=== PATIENT | female | born 1995 | race Caucasian/White ===

== ENCOUNTER 2023-10-18 18:57 | Emergency (ER) | payer OTHER ==
[~2023-10-18] VITALS: Ht 170.2 cm; Wt 80.0 kg
[2023-10-18] MEDS ORDERED: TIRZ5PEN3 SQ (19:10)
[2023-10-18] MEDS ORDERED: METH-1165 PO (20:49)
[2023-10-18] MEDS: methocarbamoL 750 MG TAB PO ONE (20:50)
[2023-10-18 21:00] VITALS: BP 114/71; TEMP 98.8; O2SAT 99
== END 2023-10-18 21:05 | disposition home or self-care (01) ==
LOC: M ED 18:57
DX: S16.1XXA Strain of muscle, fascia and tendon at neck level, initial encounter (principal); S29.012A Strain of muscle and tendon of back wall of thorax, initial encounter; V43.52XA Car driver injured in collision with other type car in traffic accident, initial encounter; Y92.9 Unspecified place or not applicable; Y93.9 Activity, unspecified; Y99.9 Unspecified external cause status; Z98.84 Bariatric surgery status

== ENCOUNTER 2023-12-20 15:17 | Emergency (ER) | payer OTHER ==
[~2023-12-20] VITALS: Ht 170.2 cm; Wt 77.4 kg
[~2023-12-20 15:17] MED LIST: METH-1165 PO; TIRZ5PEN3 SQ
[2023-12-20] MEDS ORDERED: MOTR200T44 PO (15:30)
[2023-12-20] MEDS ORDERED: IBUP-1022 PO (16:58)
[2023-12-20 17:03] VITALS: BP 107/69; TEMP 98.5; O2SAT 100
== END 2023-12-20 17:06 | disposition home or self-care (01) ==
LOC: M ED 15:17
DX: S90.32XA Contusion of left foot, initial encounter (principal); W22.01XA Walked into wall, initial encounter; Y92.009 Unspecified place in unspecified non-institutional (private) residence as the place of occurrence of the external cause; Y93.9 Activity, unspecified; Y99.9 Unspecified external cause status; Z98.84 Bariatric surgery status

== ENCOUNTER 2024-02-25 18:27 | Emergency (ER) | payer OTHER ==
[~2024-02-25] VITALS: Ht 170.2 cm; Wt 79.7 kg
[~2024-02-25 18:27] MED LIST changes: +IBUP-1022 PO; +MOTR200T44 PO
[2024-02-25 20:02] LABS: BASO % 0.2 % (0.0-1.0); EOS % 0.4 % (0.0-3.0); HEMATOCRIT 38.4 % (36.0-47.0); HEMOGLOBIN 12.9 g/dl (12.0-15.5); LYMPH # 0.8 10^3/uL (1.5-5.0); MEAN CORPUSCULAR HEMOGLOBIN 30.6 pg (27.0-33.0); MEAN CORPUSCULAR HGB CONC 33.6 g/dl (32.0-36.5); MEAN CORPUSCULAR VOLUME 91.2 fl (80.0-96.0); MONO # 0.3 10^3/uL (0.0-0.8); MONO % 7.4 % (2.0-8.0); NEUTROPHILS # 3.3 10^3/uL (1.5-8.5); NEUTROPHILS % 74.8 % (36.0-66.0); PLATELET COUNT, AUTOMATED 122 10^3/uL (150-450); RED BLOOD COUNT 4.21 10^6/uL (4.00-5.40); WHITE BLOOD COUNT 4.5 10^3/uL (4.0-10.0)
[2024-02-25 20:28] LABS: CK-MB VALUE MASS < 1.0 NG/ML (<3.6)
[2024-02-25 20:30] LABS: ALBUMIN 3.3 G/DL (3.2-5.2); ALKALINE PHOSPHATASE 60 U/L (46-116); ALT/SGPT 15 U/L (7.0-40); AST/SGOT 15 U/L (<34); BILIRUBIN,DIRECT 0.2 MG/DL (<0.4); BILIRUBIN,TOTAL 0.7 MG/DL (0.3-1.2); CPK CREATINE PHOSPHOKINASE 43 U/L (34-145); MB/CK RELATIVE INDEX 2.32 (< OR =4); TOTAL PROTEIN 6.3 G/DL (5.7-8.2)
[2024-02-25 20:46] LABS: HCG, SERUM QUALITATIVE NEGATIVE (NEGATIVE)
[2024-02-25 21:10] LABS: BLOOD UREA NITROGEN 11 MG/DL (9-23); CALCIUM LEVEL 8.6 MG/DL (8.5-10.1); CARBON DIOXIDE LEVEL 26 MMOL/L (20-31); CHLORIDE LEVEL 108 MMOL/L (98-107); CREATININE FOR GFR 0.64 MG/DL (0.55-1.30); GLOMERULAR FILTRATION RATE > 60.0 (>60); GLUCOSE, FASTING 146 MG/DL (60-100); POTASSIUM SERUM 3.5 MMOL/L (3.5-5.1); SODIUM LEVEL 138 MMOL/L (136-145)
[2024-02-25] MEDS: AZITHROMYCIN 250MG TABLET PO ONE (21:29)
[2024-02-25] MEDS: NS 1,000 ML IV ONE ×2 (21:29→22:35)
[2024-02-25] MEDS: ACETAMINOPHEN 500 MG TAB PO ONE (21:29)
[2024-02-25] MEDS: IBUPROFEN 800 MG TAB PO ONE (22:41)
[2024-02-25] MEDS ORDERED: AZIT500T5 PO (23:49)
[2024-02-25 23:53] VITALS: BP 100/53; TEMP 99.4; O2SAT 96
== END 2024-02-25 23:58 | disposition home or self-care (01) ==
LOC: M ED 18:27
DX: J18.1 Lobar pneumonia, unspecified organism (principal); B96.0 Mycoplasma pneumoniae [M. pneumoniae] as the cause of diseases classified elsewhere; Z87.01 Personal history of pneumonia (recurrent); Z98.84 Bariatric surgery status

== ENCOUNTER 2024-02-27 07:12 | Emergency (ER) | payer OTHER ==
[~2024-02-27] VITALS: Ht 170.2 cm; Wt 87.2 kg
[~2024-02-27 07:12] MED LIST changes: +AZIT500T5 PO
[2024-02-27] MEDS ORDERED: ACET-861 PO (07:23)
[2024-02-27 08:08] LABS: BASO % 0.3 % (0.0-1.0); EOS % 0.3 % (0.0-3.0); HEMATOCRIT 34.6 % (36.0-47.0); HEMOGLOBIN 11.7 g/dl (12.0-15.5); LYMPH # 0.8 10^3/uL (1.5-5.0); MEAN CORPUSCULAR HEMOGLOBIN 29.8 pg (27.0-33.0); MEAN CORPUSCULAR HGB CONC 33.8 g/dl (32.0-36.5); MEAN CORPUSCULAR VOLUME 88.3 fl (80.0-96.0); MONO # 0.3 10^3/uL (0.0-0.8); NEUTROPHILS # 2.3 10^3/uL (1.5-8.5); NEUTROPHILS % 67.1 % (36.0-66.0); PLATELET COUNT, AUTOMATED 134 10^3/uL (150-450); RED BLOOD COUNT 3.92 10^6/uL (4.00-5.40); WHITE BLOOD COUNT 3.4 10^3/uL (4.0-10.0)
[2024-02-27 08:25] LABS: BLOOD UREA NITROGEN 8 MG/DL (9-23); CALCIUM LEVEL 7.7 MG/DL (8.5-10.1); CARBON DIOXIDE LEVEL 25 MMOL/L (20-31); CHLORIDE LEVEL 108 MMOL/L (98-107); CREATININE FOR GFR 0.67 MG/DL (0.55-1.30); GLOMERULAR FILTRATION RATE > 60.0 (>60); GLUCOSE, FASTING 93 MG/DL (60-100); POTASSIUM SERUM 3.5 MMOL/L (3.5-5.1); SODIUM LEVEL 137 MMOL/L (136-145)
[2024-02-27 09:37] LABS: PROCALCITONIN 0.18 ng/ml
[2024-02-27 09:38] LABS: ALBUMIN 3.1 G/DL (3.2-5.2); ALKALINE PHOSPHATASE 56 U/L (46-116); ALT/SGPT 20 U/L (7.0-40); AST/SGOT 20 U/L (<34); BILIRUBIN,DIRECT 0.3 MG/DL (<0.4); BILIRUBIN,TOTAL 0.7 MG/DL (0.3-1.2); TOTAL PROTEIN 5.8 G/DL (5.7-8.2)
[2024-02-27] MEDS ORDERED: AMOX875T2 PO (10:52)
[2024-02-27] MEDS ORDERED: REGL5TAB2 PO (10:52)
[2024-02-27 11:01] VITALS: BP 99/56; TEMP 97.7; O2SAT 98
== END 2024-02-27 11:14 | disposition home or self-care (01) ==
LOC: M ED 07:12
DX: J15.7 Pneumonia due to Mycoplasma pneumoniae (principal); R94.31 Abnormal electrocardiogram [ECG] [EKG]; Z79.1 Long term (current) use of non-steroidal anti-inflammatories (NSAID); Z79.2 Long term (current) use of antibiotics; Z79.899 Other long term (current) drug therapy

== ENCOUNTER 2024-09-02 10:23 | Emergency (ER) | payer OTHER ==
[~2024-09-02] VITALS: Ht 170.2 cm; Wt 123.6 kg
[~2024-09-02 10:23] MED LIST changes: +ACET-861 PO; +AMOX875T2 PO; +REGL5TAB2 PO
[2024-09-02 11:44] LABS: BASO % 0.8 % (0.0-1.0); EOS % 0.6 % (0.0-3.0); HEMATOCRIT 38.8 % (36.0-47.0); HEMOGLOBIN 13.4 g/dl (12.0-15.5); LYMPH # 1.6 10^3/uL (1.5-5.0); MEAN CORPUSCULAR HEMOGLOBIN 30.2 pg (27.0-33.0); MEAN CORPUSCULAR HGB CONC 34.5 g/dl (32.0-36.5); MEAN CORPUSCULAR VOLUME 87.4 fl (80.0-96.0); MONO # 0.4 10^3/uL (0.0-0.8); MONO % 7.7 % (2.0-8.0); NEUTROPHILS # 2.7 10^3/uL (1.5-8.5); NEUTROPHILS % 56.7 % (36.0-66.0); PLATELET COUNT, AUTOMATED 228 10^3/uL (150-450); RED BLOOD COUNT 4.44 10^6/uL (4.00-5.40); WHITE BLOOD COUNT 4.8 10^3/uL (4.0-10.0)
[2024-09-02 13:38] LABS: APPEARANCE, URINE CLOUDY (CLEAR); BACTERIA, URINE AUTO NEGATIVE (NEGATIVE); BILIRUBIN, URINE AUTO NEGATIVE (NEGATIVE); BLOOD, URINE BLOOD NEGATIVE (NEGATIVE); COLOR, URINE YELLOW (YELLOW); GLUCOSE, URINE (UA) AUTO NEGATIVE (NEGATIVE); KETONE, URINE AUTO NEGATIVE (NEGATIVE); LEUKOCYTE ESTERASE, URINE AUTO 2+ (NEGATIVE); MUCUS, URINE MODERATE (NEGATIVE); NITRITE, URINE AUTO NEGATIVE (NEGATIVE); PROTEIN, URINE AUTO 1+ mg/dL (NEGATIVE); RBC, URINE AUTO 1 /HPF (0-3); SPECIFIC GRAVITY URINE AUTO 1.024 (1.002-1.035); SQUAMOUS EPITHELIAL CELL UR AU 7 /HPF (0-6); WBC, URINE AUTO 6 /HPF (0-3)
[2024-09-02 16:27] VITALS: BP 111/61; TEMP 97.6; O2SAT 97
== END 2024-09-02 16:36 | disposition home or self-care (01) ==
LOC: M ED 10:23
DX: R10.32 Left lower quadrant pain (principal); Z79.1 Long term (current) use of non-steroidal anti-inflammatories (NSAID); Z79.2 Long term (current) use of antibiotics; Z79.899 Other long term (current) drug therapy

== ENCOUNTER → 2024-09-06 | Outpatient (CLI) | payer OTHER | LOC: M LAB 09:15 | DX: O20.0 Threatened abortion (principal); Z3A.00 Weeks of gestation of pregnancy not specified ==

== ENCOUNTER 2024-11-04 18:46 | Emergency (ER) | payer OTHER ==
[~2024-11-04] VITALS: Ht 167.6 cm; Wt 81.1 kg
[2024-11-04 19:48] LABS: BASO % 0.4 % (0.0-1.0); EOS # 0.1 10^3/uL (0.0-0.5); EOS % 0.8 % (0.0-3.0); HEMATOCRIT 38.6 % (36.0-47.0); HEMOGLOBIN 13.2 g/dl (12.0-15.5); LYMPH % 28.3 % (24.0-44.0); MEAN CORPUSCULAR HEMOGLOBIN 29.7 pg (27.0-33.0); MEAN CORPUSCULAR HGB CONC 34.2 g/dl (32.0-36.5); MEAN CORPUSCULAR VOLUME 86.9 fl (80.0-96.0); MONO # 0.5 10^3/uL (0.0-0.8); MONO % 7.4 % (2.0-8.0); NEUTROPHILS # 4.5 10^3/uL (1.5-8.5); RED BLOOD COUNT 4.44 10^6/uL (4.00-5.40); WHITE BLOOD COUNT 7.1 10^3/uL (4.0-10.0)
[2024-11-04 20:01] LABS: APPEARANCE, URINE CLOUDY (CLEAR); BACTERIA, URINE AUTO 1+ (NEGATIVE); BILIRUBIN, URINE AUTO NEGATIVE (NEGATIVE); BLOOD, URINE BLOOD 1+ (NEGATIVE); COLOR, URINE YELLOW (YELLOW); GLUCOSE, URINE (UA) AUTO NEGATIVE (NEGATIVE); KETONE, URINE AUTO NEGATIVE (NEGATIVE); LEUKOCYTE ESTERASE, URINE AUTO 3+ (NEGATIVE); MUCUS, URINE SMALL (NEGATIVE); NITRITE, URINE AUTO NEGATIVE (NEGATIVE); PROTEIN, URINE AUTO 1+ mg/dL (NEGATIVE); RBC, URINE AUTO 8 /HPF (0-3); SPECIFIC GRAVITY URINE AUTO 1.021 (1.002-1.035); SQUAMOUS EPITHELIAL CELL UR AU 71 /HPF (0-6); UROBILINOGEN, URINE AUTO 0.2 mg/dL (0.0-2.0); WBC, URINE AUTO 45 /HPF (0-3)
[2024-11-04 20:12] LABS: ALBUMIN 3.2 G/DL (3.2-5.2); ALKALINE PHOSPHATASE 52 U/L (35-104); ALT/SGPT 15 U/L (7.0-40); AST/SGOT 26 U/L (<34); BILIRUBIN,DIRECT < 0.1 MG/DL (<0.4); BILIRUBIN,TOTAL 0.4 MG/DL (0.3-1.2); BLOOD UREA NITROGEN 11 MG/DL (9-23); CALCIUM LEVEL 8.8 MG/DL (8.5-10.1); CARBON DIOXIDE LEVEL 21 MMOL/L (20-31); CHLORIDE LEVEL 109 MMOL/L (98-107); CREATININE FOR GFR 0.42 MG/DL (0.55-1.30); GLOMERULAR FILTRATION RATE > 60.0 (>60); GLUCOSE, FASTING 90 MG/DL (60-100); POTASSIUM SERUM 4.4 MMOL/L (3.5-5.1); SODIUM LEVEL 142 MMOL/L (136-145); TOTAL PROTEIN 6.6 G/DL (5.7-8.2)
[2024-11-04] MEDS: NS (Normal Saline) 0.9% 1,000 ML IV ONE (20:35)
[2024-11-04] MEDS: ONDANSETRON 4MG 2ML VIAL IV ONE (20:36)
[2024-11-04] MEDS ORDERED: CEPH500C PO (21:56)
[2024-11-04] MEDS ORDERED: ONDA-282 PO (21:56)
[2024-11-04 22:09] VITALS: BP 102/60; TEMP 98; O2SAT 99
[2024-11-04] MEDS: CEPHALEXIN 500 MG CAP PO ONE (22:09)
[2024-11-04] MEDS: ONDANSETRON 4MG ORAL DISINTEGRATING TAB PO ONE (22:09)
== END 2024-11-04 22:21 | disposition home or self-care (01) ==
LOC: M ED 18:46
DX: O21.0 Mild hyperemesis gravidarum (principal); Z3A.13 13 weeks gestation of pregnancy
CPT/HCPCS: 80048; 80076; 81001; 84702; 85025; 87086; 87486; 87581; 87633; 87798; 96374; 99284; J2405

== ENCOUNTER → 2025-02-23 | Outpatient (REF) | payer OTHER ==
[~2025-02-23] MED LIST changes: +CEPH500C PO; +ONDA-282 PO
[2025-02-23 14:22] LABS: Trichomonas vaginalis (AMP) NOT DETECTED (NEGATIVE)
[2025-02-23 14:33] LABS: TOTAL PROTEIN,RANDOM URINE 12.9 MG/DL (0.0-14.0)
[2025-02-23 14:46] LABS: GC DNA AMPLIFICATION NEGATIVE (NEGATIVE)
== END ==
LOC: M SFHCWAGY 12:26
PROVIDERS: ATTEND Obstetrics & Gynecology
DX: O09.299 Supervision of pregnancy with other poor reproductive or obstetric history, unspecified trimester (principal); Z3A.29 29 weeks gestation of pregnancy

== ENCOUNTER 2025-03-13 19:07 | Outpatient (CLI) | payer OTHER ==
[~2025-03-13] VITALS: Ht 170.2 cm; Wt 91.0 kg
[2025-03-13 19:38] VITALS: BP 120/70
== END 2025-03-13 20:08 | disposition home or self-care (01) ==
LOC: M LDO 19:07
PROVIDERS: ATTEND Specialist
DX: O47.03 False labor before 37 completed weeks of gestation, third trimester (principal); O99.840 Bariatric surgery status complicating pregnancy, unspecified trimester; Z87.59 Personal history of other complications of pregnancy, childbirth and the puerperium; Z3A.32 32 weeks gestation of pregnancy
CPT/HCPCS: 59025; G0463

== ENCOUNTER 2025-04-04 18:58 | Outpatient (CLI) | payer OTHER ==
[~2025-04-04] VITALS: Ht 167.6 cm; Wt 93.2 kg
[~2025-04-04 18:58] MED LIST changes: +ACET-907 PO
[2025-04-04 19:15] VITALS: BP 116/72
[2025-04-04 19:16] VITALS: BP 118/64
[2025-04-04 19:19] VITALS: BP 110/65
[2025-04-04 19:46] LABS: APPEARANCE, URINE CLEAR (CLEAR); BACTERIA, URINE AUTO NEGATIVE (NEGATIVE); BILIRUBIN, URINE AUTO NEGATIVE (NEGATIVE); BLOOD, URINE BLOOD NEGATIVE (NEGATIVE); GLUCOSE, URINE (UA) AUTO NEGATIVE (NEGATIVE); KETONE, URINE AUTO NEGATIVE (NEGATIVE); LEUKOCYTE ESTERASE, URINE AUTO NEGATIVE (NEGATIVE); NITRITE, URINE AUTO NEGATIVE (NEGATIVE); PROTEIN, URINE AUTO NEGATIVE (NEGATIVE); RBC, URINE AUTO 1 /HPF (0-3); SPECIFIC GRAVITY URINE AUTO 1.003 (1.002-1.035); SQUAMOUS EPITHELIAL CELL UR AU 2 /HPF (0-6); UROBILINOGEN, URINE AUTO 0.2 mg/dL (0.0-2.0); WBC, URINE AUTO 0 /HPF (0-3)
[2025-04-04 20:34] LABS: BASO # 0.0 10^3/uL (0.0-0.2); BASO % 0.4 % (0.0-1.0); EOS # 0.0 10^3/uL (0.0-0.5); EOS % 0.3 % (0.0-3.0); LYMPH # 1.9 10^3/uL (1.5-5.0); LYMPH % 20.6 % (24.0-44.0); MONO # 0.6 10^3/uL (0.0-0.8); MONO % 6.6 % (2.0-8.0); NEUTROPHILS # 6.7 10^3/uL (1.5-8.5); NEUTROPHILS % 71.8 % (36.0-66.0); PLATELET COUNT, AUTOMATED 225 10^3/uL (150-450)
[2025-04-04 21:01] LABS: ALT/SGPT < 9 U/L (7.0-40); AST/SGOT 13 U/L (<34); CALCIUM LEVEL 8.7 MG/DL (8.5-10.1); CARBON DIOXIDE LEVEL 23 MMOL/L (20-31); CHLORIDE LEVEL 107 MMOL/L (98-107); CREATININE FOR GFR 0.51 MG/DL (0.55-1.30); GLOMERULAR FILTRATION RATE > 90.0 (>60); IRON (FE) 32 UG/DL (50-170); POTASSIUM SERUM 4.1 MMOL/L (3.5-5.1); SODIUM LEVEL 138 MMOL/L (136-145)
[2025-04-04] MEDS ORDERED: FERR324T21 PO (21:05)
== END 2025-04-04 21:10 | disposition home or self-care (01) ==
LOC: M LDO 18:58
PROVIDERS: ATTEND Advanced Practice Midwife
DX: O26.893 Other specified pregnancy related conditions, third trimester (principal); O99.013 Anemia complicating pregnancy, third trimester; O99.843 Bariatric surgery status complicating pregnancy, third trimester; R03.0 Elevated blood-pressure reading, without diagnosis of hypertension; D50.9 Iron deficiency anemia, unspecified; Z3A.35 35 weeks gestation of pregnancy
CPT/HCPCS: 36415; 59025; 76815; 80053; 81001; 82728; 83540; 85025; 87081; G0463

== ENCOUNTER 2025-04-12 17:51 | Outpatient (CLI) | payer OTHER ==
[~2025-04-12] VITALS: Ht 167.6 cm; Wt 94.3 kg
[~2025-04-12 17:51] MED LIST changes: +FERR324T21 PO; -IBUP-1022 PO; +IBUP600T42 PO
[2025-04-12 18:06] VITALS: BP 107/66
[2025-04-12] MEDS ORDERED: PRENTAB9 PO (18:19)
[2025-04-12] MEDS ORDERED: VITA100065 PO (18:19)
[2025-04-12] MEDS ORDERED: NOXI1TAB PO (18:19)
[2025-04-12] MEDS ORDERED: HOME MED LIST COMPLETE! XX SCH (18:20)
== END 2025-04-12 18:35 | disposition home or self-care (01) ==
LOC: M LDO 17:51
PROVIDERS: ATTEND Obstetrics & Gynecology
DX: O36.8130 Decreased fetal movements, third trimester, not applicable or unspecified (principal); Z3A.36 36 weeks gestation of pregnancy
CPT/HCPCS: 59025; G0463

== ENCOUNTER 2025-04-19 16:31 | Outpatient (CLI) | payer OTHER ==
[~2025-04-19] VITALS: Ht 167.6 cm; Wt 95.9 kg
[~2025-04-19 16:31] MED LIST changes: +NOXI1TAB PO; +PRENTAB9 PO; +VITA100065 PO
[2025-04-19 16:51] VITALS: BP 121/69
[2025-04-19] MEDS ORDERED: HOME MED LIST COMPLETE! XX SCH (17:05)
== END 2025-04-19 18:45 | disposition home or self-care (01) ==
LOC: M LDO 16:31
PROVIDERS: ATTEND Specialist
DX: O26.893 Other specified pregnancy related conditions, third trimester (principal); N89.8 Other specified noninflammatory disorders of vagina; Z3A.37 37 weeks gestation of pregnancy; Z87.59 Personal history of other complications of pregnancy, childbirth and the puerperium
CPT/HCPCS: 59025; G0463